=== PATIENT | male | born 1965 | race Caucasian/White ===

== ENCOUNTER → 2024-04-25 09:55 | Outpatient (REF) | payer OTHER, SELFPAY | LOC: RCS 09:55 | PROVIDERS: ATTENDING PHYSICIAN Internal Medicine Cardiovascular Disease; FAMILY PHYSICIAN Student in an Organized Health Care Education/Training Program | DX: Z95.2 Presence of prosthetic heart valve (principal) | CPT/HCPCS: 93306 ==